=== PATIENT | female | born 1950 | race Caucasian/White ===

== ENCOUNTER 2018-06-19 06:23 | Inpatient (IN) | payer MEDICARE, BC, OTHER ==
[2018-06-19] MEDS ORDERED: FENTAnyl 50 MCG/ML VIAL (06:52)
[2018-06-19] MEDS ORDERED: HEPARIN 1000 UNITS/ML 10 ML INJ (06:52)
[2018-06-19] MEDS ORDERED: LIDOCAINE 1% (MDV) 20 ML INJ (06:52)
[2018-06-19] MEDS ORDERED: IODIXANOL LOCM 100 ML BTL ×2 (06:52→08:52)
[2018-06-19] MEDS ORDERED: MIDAZOLAM 1 MG/ML 2 ML INJ (06:52)
[2018-06-19] MEDS ORDERED: VERAPAMIL 5 MG INJ (06:53)
[2018-06-19] MEDS ORDERED: NITROGLYCERIN (IC) 100 MCG/ML INJ (06:53)
[2018-06-19] MEDS ORDERED: SOD CHLORIDE 0.9% 500 ML (06:54)
[2018-06-19] MEDS ORDERED: BIVALIRUDIN 250MG /NS 50 ML 50 ML IVPB (08:16)
[2018-06-19] MEDS ORDERED: IOHEXOL 350MG/ML 50 ML BTL (08:16)
[2018-06-19] MEDS ORDERED: TICAGRELOR 90 MG TABLET (08:19)
[2018-06-19] MEDS ORDERED: ASPIRIN 325 MG TAB (08:21)
[2018-06-19] MEDS: ASPIRIN 81 MG TAB PO (09:30)
[2018-06-19] MEDS ORDERED: LOSARTAN 50 MG TAB PO (09:30)
[2018-06-19] MEDS: hydrALAzine 20 MG INJ IV (10:08)
[2018-06-19] MEDS: LOSARTAN 50 MG TAB PO (10:21)
[2018-06-19] MEDS: ACETAMINOPHEN 325 MG TAB PO (10:37)
[2018-06-19 10:55] LABS: ADD MAN DIFF? NO
[2018-06-19 10:59] LABS: BASOPHILS % 0.4 % (0.0-2.0); EOSINOPHILS # 0.2 10^3/ul (0.0-0.5); EOSINOPHILS % 1.5 % (0.0-7.0); HEMATOCRIT 38.1 % (37.0-47.0); LYMPHOCYTES # 2.4 10^3/ul (0.8-2.9); LYMPHOCYTES % 24.2 % (15.0-51.0); MEAN CORPUSCULAR HEMOGLOBIN 29.6 pg (29.0-33.0); MEAN CORPUSCULAR HGB CONC 34.1 g/dl (32.0-37.0); MEAN CORPUSCULAR VOLUME 86.8 fl (82.0-101.0); MONOCYTE # 0.5 10^3/ul (0.3-0.9); MONOCYTES % 5.2 % (0.0-11.0); NEUTROPHIL # 6.7 10^3/ul (1.6-7.5); PLATELET COUNT 177 10^3/UL (140-415); RED BLOOD COUNT 4.39 10^6/ul (4.20-5.40); RED CELL DISTRIBUTION WIDTH 11.9 % (11.5-14.5)
[2018-06-19 10:59] LABS: WHITE BLOOD COUNT 9.9 10^3/ul (4.8-10.8)
[2018-06-19 11:21] LABS: ANION GAP 9 (5-13); BLOOD UREA NITROGEN 11 mg/dl (7-20); CALCIUM 8.8 mg/dl (8.4-10.2); CARBON DIOXIDE 24 mmol/L (21-31); CHLORIDE 104 mmol/L (97-110); Estimated GFR > 60 mL/min (>60); GLUCOSE 283 mg/dl (70-220); POTASSIUM 3.7 mmol/L (3.5-5.1); SODIUM 137 mmol/L (135-144)
[2018-06-19 11:22] LABS: CREATININE 0.39 mg/dl (0.44-1.00)
[2018-06-19] MEDS: ACCU-CHEK XX ×3 (11:30→22:06)
[2018-06-19 12:25] LABS: ALANINE AMINOTRANSFERASE 31 IU/L (13-69); ALBUMIN 3.2 g/dl (3.3-4.9); ALKALINE PHOSPHATASE 143 IU/L (42-121); ASPARTATE AMINO TRANSFERASE 20 IU/L (15-46); BILIRUBIN,INDIRECT 0.2 mg/dl (0-1.1); BILIRUBIN,TOTAL 0.2 mg/dl (0.2-1.3); TOTAL PROTEIN 5.6 g/dl (6.1-8.1)
[2018-06-19] MEDS ORDERED: GLUCOSE GEL 15 GRAM TUBE PO ×2 (12:30)
[2018-06-19] MEDS ORDERED: GLUCAGON 1 MG INJ IM (12:30)
[2018-06-19] MEDS ORDERED: DEXTROSE 50% 50 ML SYRINGE IV ×2 (12:30)
[2018-06-19] MEDS ORDERED: GLUCOSE GEL 15 GRAM TUBE BUCCAL (12:30)
[2018-06-19] MEDS: INSULIN ASPART [NOVOLOG] 3 ML PEN SC ×4 (12:37→22:02)
[2018-06-19] MEDS: HYDROCODONE/APAP (5/325) TAB PO (15:34)
[2018-06-19] MEDS: ATORVASTATIN 40 MG TAB PO (20:29)
[2018-06-19] MEDS: METOPROLOL 25 MG TAB PO (20:30)
[2018-06-19] MEDS: HYDROCODONE/APAP (10/325) TAB PO (20:30)
[2018-06-19] MEDS: GABAPENTIN 300 MG CAP PO (20:30)
[2018-06-19] MEDS: TICAGRELOR 90 MG TABLET PO (20:33)
[2018-06-20] MEDS: ACCU-CHEK XX ×5 (02:07→21:48)
[2018-06-20] MEDS: HYDROCODONE/APAP (5/325) TAB PO ×2 (02:56→12:34)
[2018-06-20] MEDS: HYDROCODONE/APAP (10/325) TAB PO ×2 (05:31→17:08)
[2018-06-20 06:07] LABS: ADD UMIC YES; UR ASCORBIC ACID NEGATIVE (NEGATIVE); UR BILIRUBIN (Dip) NEGATIVE (NEGATIVE); UR BLOOD (Dip) NEGATIVE (NEGATIVE); UR CLARITY CLEAR (CLEAR); UR COLOR STRAW (YELLOW); UR GLUCOSE (Dip) 3+ mg/dL (NEGATIVE); UR KETONES (Dip) TRACE mg/dL (NEGATIVE); UR LEUKOCYTE ESTERASE (Dip) TRACE Leu/ul (NEGATIVE); UR NITRITE (Dip) NEGATIVE (NEGATIVE); UR RBC 0 /HPF (0-5); UR SPECIFIC GRAVITY (Dip) 1.008 (1.003-1.030); UR TOTAL PROTEIN (Dip) NEGATIVE (NEGATIVE); UR UROBILINOGEN (Dip) NEGATIVE (NEGATIVE); UR WBC 5 /HPF (0-5)
[2018-06-20 06:15] LABS: SODIUM,URINE RANDOM 68 mmol/L (30-90)
[2018-06-20 06:15] LABS: CREATININE,URINE RANDOM 23.44 mg/dl (20-320)
[2018-06-20] MEDS: INSULIN ASPART [NOVOLOG] 3 ML PEN SC ×7 (07:58→21:48)
[2018-06-20] MEDS: INSULIN GLARGINE [LANTus] (100 UNITS/ML) SYG SC ×2 (08:06→17:55)
[2018-06-20 08:24] LABS: ADD MAN DIFF? NO
[2018-06-20 08:32] LABS: BASOPHILS % 0.4 % (0.0-2.0); EOSINOPHILS # 0.1 10^3/ul (0.0-0.5); EOSINOPHILS % 1.7 % (0.0-7.0); HEMATOCRIT 36.8 % (37.0-47.0); HEMOGLOBIN 12.6 g/dl (12.0-16.0); LYMPHOCYTES # 1.3 10^3/ul (0.8-2.9); LYMPHOCYTES % 15.2 % (15.0-51.0); MEAN CORPUSCULAR HEMOGLOBIN 29.6 pg (29.0-33.0); MEAN CORPUSCULAR HGB CONC 34.2 g/dl (32.0-37.0); MEAN CORPUSCULAR VOLUME 86.6 fl (82.0-101.0); MEAN PLATELET VOLUME 11.6 fl (7.4-10.4); MONOCYTE # 0.5 10^3/ul (0.3-0.9); MONOCYTES % 6.4 % (0.0-11.0); NEUTROPHIL # 6.3 10^3/ul (1.6-7.5); NEUTROPHILS % 75.8 % (39.0-77.0); PLATELET COUNT 174 10^3/UL (140-415); RED BLOOD COUNT 4.25 10^6/ul (4.20-5.40)
[2018-06-20 08:32] LABS: WHITE BLOOD COUNT 8.3 10^3/ul (4.8-10.8)
[2018-06-20 09:01] LABS: ANION GAP 9 (5-13); BLOOD UREA NITROGEN 8 mg/dl (7-20); CALCIUM 9.1 mg/dl (8.4-10.2); CARBON DIOXIDE 25 mmol/L (21-31); CHLORIDE 105 mmol/L (97-110); CREATININE 0.48 mg/dl (0.44-1.00); Estimated GFR > 60 mL/min (>60); GLUCOSE 309 mg/dl (70-220); MAGNESIUM 1.6 mg/dl (1.7-2.5); PHOSPHORUS 4.3 mg/dl (2.5-4.9); POTASSIUM 3.4 mmol/L (3.5-5.1); SODIUM 139 mmol/L (135-144)
[2018-06-20] MEDS: DULOXETINE 20 MG CAP DR PO (09:09)
[2018-06-20] MEDS: LINAGLIPTIN 5 MG TABLET PO (09:09)
[2018-06-20] MEDS: GABAPENTIN 300 MG CAP PO ×2 (09:09→21:40)
[2018-06-20] MEDS: PANTOPRAZOLE (EC) 40 MG TAB PO (09:10)
[2018-06-20] MEDS: ASPIRIN 81 MG TAB PO (09:10)
[2018-06-20] MEDS: LOSARTAN 50 MG TAB PO (09:11)
[2018-06-20] MEDS: TICAGRELOR 90 MG TABLET PO ×2 (09:12→21:46)
[2018-06-20] MEDS: ENOXAPARIN 40 MG/0.4 ML SYG SC (09:21)
[2018-06-20] MEDS: MAGNESIUM SULFATE 2 GM/50 ML 50 ML IVPB (10:12)
[2018-06-20] MEDS: POTASSIUM CHLORIDE 20 MEQ POWDER FOR ORAL SOLN PO (10:19)
[2018-06-20] MEDS ORDERED: INSULIN ASPART [NOVOLOG] 3 ML PEN SC (13:00)
[2018-06-20] MEDS: ACETAMINOPHEN 325 MG TAB PO (16:30)
[2018-06-20] MEDS: metFORMIN 500 MG TAB PO (17:08)
[2018-06-20] MEDS ORDERED: ACCU-CHEK XX (17:25)
[2018-06-20] MEDS ORDERED: LINAGLIPTIN 5 MG TABLET PO (21:00)
[2018-06-20] MEDS: ATORVASTATIN 40 MG TAB PO (21:40)
[2018-06-20] MEDS: METOPROLOL 50 MG TAB PO (21:41)
[2018-06-21] MEDS: HYDROCODONE/APAP (10/325) TAB PO ×2 (02:17→19:50)
[2018-06-21] MEDS: ACCU-CHEK XX ×5 (02:17→21:14)
[2018-06-21] MEDS: metFORMIN 500 MG TAB PO ×2 (07:42→17:30)
[2018-06-21] MEDS: INSULIN ASPART [NOVOLOG] 3 ML PEN SC ×7 (07:50→21:00)
[2018-06-21] MEDS: INSULIN GLARGINE [LANTus] (100 UNITS/ML) SYG SC (07:50)
[2018-06-21] MEDS: DULOXETINE 20 MG CAP DR PO (09:02)
[2018-06-21] MEDS: GABAPENTIN 300 MG CAP PO ×2 (09:02→21:13)
[2018-06-21] MEDS: ASPIRIN 81 MG TAB PO (09:02)
[2018-06-21] MEDS: LOSARTAN 50 MG TAB PO (09:02)
[2018-06-21] MEDS: PANTOPRAZOLE (EC) 40 MG TAB PO (09:02)
[2018-06-21] MEDS: METOPROLOL 50 MG TAB PO ×2 (09:03→21:19)
[2018-06-21] MEDS: ENOXAPARIN 40 MG/0.4 ML SYG SC (09:08)
[2018-06-21] MEDS: TICAGRELOR 90 MG TABLET PO ×2 (09:09→21:17)
[2018-06-21] MEDS: HYDROCODONE/APAP (5/325) TAB PO (09:16)
[2018-06-21 11:36] LABS: ANION GAP 9 (5-13); BLOOD UREA NITROGEN 11 mg/dl (7-20); CALCIUM 9.3 mg/dl (8.4-10.2); CARBON DIOXIDE 26 mmol/L (21-31); CHLORIDE 101 mmol/L (97-110); CREATININE 0.56 mg/dl (0.44-1.00); Estimated GFR > 60 mL/min (>60); GLUCOSE 299 mg/dl (70-220); MAGNESIUM 1.8 mg/dl (1.7-2.5); POTASSIUM 4.1 mmol/L (3.5-5.1); SODIUM 136 mmol/L (135-144)
[2018-06-21] MEDS: LINAGLIPTIN 5 MG TABLET PO (12:23)
[2018-06-21] MEDS: ACETAMINOPHEN 325 MG TAB PO (12:30)
[2018-06-21 15:32] LABS: CREATININE, RANDOM URINE 24 mg/dL (20-275); MICROALBUMIN 0.6 mg/dL; MICROALBUMIN/CREATININE RATIO 25 (<30)
[2018-06-21] MEDS: ATORVASTATIN 40 MG TAB PO (21:13)
[2018-06-22] MEDS: ONDANSETRON 4 MG INJ IV (00:12)
[2018-06-22] MEDS: ACCU-CHEK XX ×3 (02:00→11:45)
[2018-06-22] MEDS: HYDROCODONE/APAP (10/325) TAB PO ×2 (05:14→06:03)
[2018-06-22] MEDS: metFORMIN 500 MG TAB PO (07:42)
[2018-06-22] MEDS: INSULIN ASPART [NOVOLOG] 3 ML PEN SC ×4 (07:48→11:49)
[2018-06-22] MEDS: INSULIN GLARGINE [LANTus] (100 UNITS/ML) SYG SC (07:49)
[2018-06-22] MEDS: DULOXETINE 20 MG CAP DR PO (08:41)
[2018-06-22] MEDS: PANTOPRAZOLE (EC) 40 MG TAB PO (08:41)
[2018-06-22] MEDS: LINAGLIPTIN 5 MG TABLET PO (08:41)
[2018-06-22] MEDS: GABAPENTIN 300 MG CAP PO (08:41)
[2018-06-22] MEDS: ASPIRIN 81 MG TAB PO (08:41)
[2018-06-22] MEDS: METOPROLOL 50 MG TAB PO (08:41)
[2018-06-22] MEDS: LOSARTAN 50 MG TAB PO (08:42)
[2018-06-22] MEDS: ENOXAPARIN 40 MG/0.4 ML SYG SC (08:44)
[2018-06-22] MEDS: TICAGRELOR 90 MG TABLET PO (08:44)
== END 2018-06-22 14:05 | DRG 247 ==
LOC: CCL 06:23 → SDS 06:23 → CCL 09:24 → REC 09:51 → TEL 14:22
PROVIDERS: Internal Medicine Interventional Cardiology
PROC: 027035Z Dilation of Coronary Artery, One Artery with Two Drug-eluting Intraluminal Devices, Percutaneous Approach (ICD-10-PCS; principal; 2018-06-19 07:14)
PROC: 4A023N7 Measurement of Cardiac Sampling and Pressure, Left Heart, Percutaneous Approach (ICD-10-PCS; 2018-06-19 07:14)
PROC: B215YZZ Fluoroscopy of Left Heart using Other Contrast (ICD-10-PCS; 2018-06-19 07:14)
PROC: B211YZZ Fluoroscopy of Multiple Coronary Arteries using Other Contrast (ICD-10-PCS; 2018-06-19 07:14)
DX: I25.119 Atherosclerotic heart disease of native coronary artery with unspecified angina pectoris (principal); I10 Essential (primary) hypertension; E11.65 Type 2 diabetes mellitus with hyperglycemia; E78.5 Hyperlipidemia, unspecified; E11.40 Type 2 diabetes mellitus with diabetic neuropathy, unspecified; F32.9 Major depressive disorder, single episode, unspecified; M54.10 Radiculopathy, site unspecified; K27.9 Peptic ulcer, site unspecified, unspecified as acute or chronic, without hemorrhage or perforation; R53.81 Other malaise; G89.29 Other chronic pain; Z79.4 Long term (current) use of insulin
CPT/HCPCS: 70450; 72100; 73520; 73562-50; 80048; 80076; 81001; 81003; 82043; 82962; 83735; 84100; 84155; 84300; 85025; 93458; 97162